=== PATIENT | male | born 1950 | race Caucasian/White ===

== ENCOUNTER 2019-01-03 12:10 | Emergency (ER) | payer MEDICARE, OTHER ==
[~2019-01-03] VITALS: Ht 185.4 cm; Wt 55.0 kg
[2019-01-03 13:30] VITALS: BP 129/81
[2019-01-03 13:59] LABS: BASOPHILS % 0.4 % (0.0-2.0); EOSINOPHILS % 3.7 % (0.0-5.0); HEMATOCRIT. 40.5 % (42.0-52.0); HEMOGLOBIN. 13.5 g/dL (14.0-18.0); LYMPHOCYTES % 8.1 % (20.0-50.0); MEAN CORPUSCULAR HEMOGLOBIN 29.4 pg (28.0-32.0); MEAN PLATELET VOLUME 9.1 fl (7.4-10.4); MONOCYTES % 8.8 % (2.0-8.0); PLATELET 232 x1000/uL (130-400); RED BLOOD CELL COUNT 4.59 mill/uL (4.7-6.1)
[2019-01-03 14:02] LABS: CHLORIDE 107 mEq/L (98-107)
[2019-01-03 14:06] LABS: ETHANOL BLOOD < 10 mg/dL
== END 2019-01-03 17:00 | disposition home or self-care (01) ==
LOC: ER 12:10
DX: R41.82 Altered mental status, unspecified (principal)
CPT/HCPCS: 36415; 80053; 80307; 80320; 80329; 82962; 85025; 87040; 93005; 99284; Z7610; G0480